=== PATIENT | female | born 1950 | race Caucasian/White ===

== ENCOUNTER 2017-04-18 07:23 | Day surgery (SDC) | payer OTHER, BC ==
[~2017-04-18] VITALS: Ht 157.5 cm; Wt 67.0 kg
[~2017-04-18 07:23] MED LIST: ARAVA10 MG PO; ASPIR-LOW81 MG PO; ASPIRIN325 MG PO; ASPIRIN81 M2 PO; BREO ELLIPTA I1 EACH IH; COZAAR100 MG PO; CYANOCOBAL1000 MCG/2 IM; CYMBALTA60 MG PO; FOLIC ACID1 MG PO; GLIPIZIDE-METF1 EAC2 PO; INVOKANA100 MG PO; METHOTREXATE2.5 MG PO; METOPROLOL SUCC50 MG PO; NEXIUM40 MG PO; PERCOCET 5/31 TABLET PO; PLAVIX75 MG PO; PREDNISONE10 M1 PO; PREDNISONE10 MG PO; PROTONIX40 MG PO; RAYOS2 MG PO; RAYOS5 MG PO; TRICOR145 MG PO; VALIUM5 MG PO; VESICARE5 MG PO; VICTOZA0.6 MG/0.1 SC; ZOCOR10 MG PO; ZOCOR80 MG PO
== END 2017-04-18 09:42 | disposition home or self-care (01) ==
LOC: CATH 07:23
PROVIDERS: Surgery
PROC: 0JH63WZ Insertion of Totally Implantable Vascular Access Device into Chest Subcutaneous Tissue and Fascia, Percutaneous Approach (ICD-10-PCS; principal; 2017-04-18)
PROC: 05HM33Z Insertion of Infusion Device into Right Internal Jugular Vein, Percutaneous Approach (ICD-10-PCS; principal; 2017-04-18)
PROC: B5131ZA Fluoroscopy of Right Jugular Veins using Low Osmolar Contrast, Guidance (ICD-10-PCS; principal; 2017-04-18)
DX: Z45.2 Encounter for adjustment and management of vascular access device (principal); I87.8 Other specified disorders of veins; D84.9 Immunodeficiency, unspecified; E11.9 Type 2 diabetes mellitus without complications; E78.00 Pure hypercholesterolemia, unspecified; Z86.73 Personal history of transient ischemic attack (TIA), and cerebral infarction without residual deficits; Z79.02 Long term (current) use of antithrombotics/antiplatelets; Z79.84 Long term (current) use of oral hypoglycemic drugs; Z87.891 Personal history of nicotine dependence
CPT/HCPCS: 82948; C1751; C1894; J0690; J1644; J2250; J3010; S0020

== ENCOUNTER 2017-07-31 08:01 | Inpatient (IN) | payer OTHER, BC ==
[~2017-07-31] VITALS: Ht 156.2 cm; Wt 65.2 kg
[2017-07-31] VITALS (8 sets, daily range): BP systolic 138–170; BP diastolic 61–82
[~2017-07-31 08:01] MED LIST changes: -ARAVA10 MG PO; +ARAVA20 MG PO; -PREDNISONE10 MG PO; +PREDNISONE5 MG PO; +VESICARE10 MG PO; -VESICARE5 MG PO
[2017-07-31 08:44] LABS: HEMATOCRIT 26.2 % (36.0-46.0); HEMOGLOBIN 8.1 G/DL (11.9-15.5); MCH 30.2 PG (29.0-34.0); MCHC 30.9 G/DL (30.0-36.0); MCV 97.8 FL (83-99); NRBC (%) 0.6 /100 WBC (0-0); PLATELET COUNT 242 K/uL (156-360); RBC DIS.WIDTH-SD 81.2 % (39-53); RED BLOOD COUNT 2.68 M/uL (3.80-5.20); WHITE BLOOD COUNT 6.3 K/uL (4.1-10.2)
[2017-07-31 08:51] LABS: BASOPHIL COUNT 0.1 K/uL (0-0.1); EOSINOPHIL (%) 0.8 % (0-5); EOSINOPHIL COUNT 0.1 K/uL (0-0.3); IMMATURE GRANULOCYTE (%) 2.4 % (0.0-0.7); LYMPHOCYTE (%) 10.3 % (15-42); LYMPHOCYTE COUNT 0.7 K/uL (1.0-2.8); MONOCYTE (%) 7.4 % (3-12); MONOCYTE COUNT 0.5 K/uL (0-0.8); NEUTROPHIL (%) 78.1 % (45-76); NEUTROPHIL COUNT 4.9 K/uL (1.8-6.4)
[2017-07-31 08:52] LABS: CHLORIDE 101 mEq/L (99-109); POTASSIUM 4.3 mEq/L (3.7-5.4); SODIUM 135 mEq/L (136-147)
[2017-07-31 08:54] LABS: GLUCOSE 293 mg/dL (70-99)
[2017-07-31 08:58] LABS: CREATININE 0.8 mg/dL (0.6-1.3); GFR ESTIMATE (CALCULATED) > 59 mL/min/
[2017-07-31 08:59] LABS: UREA NITROGEN (BUN) 17 mg/dL (9-23)
[2017-07-31] MEDS ORDERED: BACLOFEN10 MG PO (10:08)
[2017-07-31] MEDS ORDERED: PROAIR HFA8.5 GM IH (10:10)
[2017-07-31] MEDS ORDERED: PREDNISONE1 MG PO (10:10)
[2017-07-31] MEDS ORDERED: [UNRECOGNIZED DRUG - OTHER] IV (10:12)
[2017-07-31 16:03] LABS: HEMATOCRIT 26.4 % (36.0-46.0); HEMOGLOBIN 8.2 G/DL (11.9-15.5); MCV 98.9 FL (83-99)
[2017-08-01 00:31] LABS: HEMATOCRIT 31.2 % (36.0-46.0); HEMOGLOBIN 9.9 G/DL (11.9-15.5); MCV 93.4 FL (83-99)
[2017-08-01 04:25] VITALS: BP 166/74
[2017-08-01 06:44] LABS: HEMATOCRIT 31.7 % (36.0-46.0); HEMOGLOBIN 9.6 G/DL (11.9-15.5); MCV 94.3 FL (83-99)
[2017-08-01 08:06] VITALS: BP 170/70
[2017-08-01 12:44] VITALS: BP 156/67
[2017-08-01 20:23] VITALS: BP 131/61
[2017-08-01 23:48] VITALS: BP 133/64
[2017-08-02 07:10] LABS: BASOPHIL (%) 1.2 % (0-1); BASOPHIL COUNT 0.1 K/uL (0-0.1); EOSINOPHIL (%) 1.7 % (0-5); EOSINOPHIL COUNT 0.1 K/uL (0-0.3); HEMATOCRIT 30.1 % (36.0-46.0); HEMOGLOBIN 9.1 G/DL (11.9-15.5); IMMATURE GRANULOCYTE (%) 1.9 % (0.0-0.7); LYMPHOCYTE (%) 16.3 % (15-42); LYMPHOCYTE COUNT 0.7 K/uL (1.0-2.8); MCH 29.1 PG (29.0-34.0); MCHC 30.2 G/DL (30.0-36.0); MCV 96.2 FL (83-99); MONOCYTE (%) 16.8 % (3-12); MONOCYTE COUNT 0.7 K/uL (0-0.8); NEUTROPHIL (%) 62.1 % (45-76); NEUTROPHIL COUNT 2.6 K/uL (1.8-6.4); PLATELET COUNT 271 K/uL (156-360); RBC DIS.WIDTH-CV 25.8 % (11.8-14.6); RBC DIS.WIDTH-SD 86.4 % (39-53); RED BLOOD COUNT 3.13 M/uL (3.80-5.20); WHITE BLOOD COUNT 4.2 K/uL (4.1-10.2)
[2017-08-02 07:33] LABS: ALBUMIN 3.7 G/DL (3.2-4.8); ALKALINE PHOSPHATASE 47 IU/L (3-129); ALT (GPT) 15 IU/L (3-49); AST (GOT) 25 IU/L (2-34); CHLORIDE 104 MEQ/L (99-109); CREATININE 0.7 MG/DL (0.6-1.3); GFR ESTIMATE (CALCULATED) > 59 mL/min/; GLUCOSE 234 mg/dL (70-99); POTASSIUM 3.8 MEQ/L (3.7-5.4); SODIUM 139 MEQ/L (136-147); TOTAL BILIRUBIN 0.4 MG/DL (0.0-1.0); TOTAL PROTEIN 5.3 G/DL (6.4-8.3); UREA NITROGEN (BUN) 16 mg/dL (9-23)
[2017-08-02 07:43] VITALS: BP 160/72
[2017-08-02 15:42] VITALS: BP 141/68
[2017-08-02 23:10] VITALS: BP 152/70
[2017-08-03 06:33] LABS: BASOPHIL COUNT 0.1 K/uL (0-0.1); EOSINOPHIL (%) 2.9 % (0-5); EOSINOPHIL COUNT 0.1 K/uL (0-0.3); HEMATOCRIT 30.9 % (36.0-46.0); HEMOGLOBIN 9.5 G/DL (11.9-15.5); IMMATURE GRANULOCYTE (%) 2.9 % (0.0-0.7); LYMPHOCYTE (%) 25.2 % (15-42); MCH 29.7 PG (29.0-34.0); MCHC 30.7 G/DL (30.0-36.0); MCV 96.6 FL (83-99); MONOCYTE (%) 17.4 % (3-12); MONOCYTE COUNT 0.7 K/uL (0-0.8); NEUTROPHIL (%) 49.6 % (45-76); PLATELET COUNT 272 K/uL (156-360); RBC DIS.WIDTH-CV 24.8 % (11.8-14.6); RBC DIS.WIDTH-SD 83.7 % (39-53); WHITE BLOOD COUNT 4.1 K/uL (4.1-10.2)
[2017-08-03 06:56] LABS: ALBUMIN 3.8 G/DL (3.2-4.8); ALKALINE PHOSPHATASE 47 IU/L (3-129); ALT (GPT) 15 IU/L (3-49); AST (GOT) 22 IU/L (2-34); CHLORIDE 108 MEQ/L (99-109); CREATININE 0.7 MG/DL (0.6-1.3); GFR ESTIMATE (CALCULATED) > 59 mL/min/; GLUCOSE 152 mg/dL (70-99); SODIUM 140 MEQ/L (136-147); TOTAL BILIRUBIN 0.4 MG/DL (0.0-1.0); TOTAL PROTEIN 5.6 G/DL (6.4-8.3); UREA NITROGEN (BUN) 14 mg/dL (9-23)
[2017-08-03 08:07] VITALS: BP 139/65
[2017-08-03] MEDS ORDERED: TOPROL XL25 MG PO (10:31)
== END 2017-08-03 12:50 | disposition home or self-care (01) | DRG 378 ==
LOC: EME 08:01 → EDOF 09:14 → 2EAST 09:14 → ENRESERV 09:16 → 2EAST 10:20 → ENPENDDIS 08-03 12:18 → 2EAST 08-03 12:50
PROVIDERS: Emergency Medicine; Family Medicine; Hospitalist; Nurse Practitioner Family
DX: K92.2 Gastrointestinal hemorrhage, unspecified (principal); D50.9 Iron deficiency anemia, unspecified; K64.8 Other hemorrhoids; D80.3 Selective deficiency of immunoglobulin G [IgG] subclasses; T45.1X5A Adverse effect of antineoplastic and immunosuppressive drugs, initial encounter; I10 Essential (primary) hypertension; E11.9 Type 2 diabetes mellitus without complications; E78.5 Hyperlipidemia, unspecified; M06.9 Rheumatoid arthritis, unspecified; M19.90 Unspecified osteoarthritis, unspecified site; R20.0 Anesthesia of skin; R20.2 Paresthesia of skin; R00.0 Tachycardia, unspecified; R06.02 Shortness of breath; Z87.891 Personal history of nicotine dependence; Z86.73 Personal history of transient ischemic attack (TIA), and cerebral infarction without residual deficits; Z90.710 Acquired absence of both cervix and uterus
CPT/HCPCS: 36591; 78278; 80048; 80053; 82272; 82948; 85014; 85018; 85025; 85025 91; 85610; 86850; 86870; 86900; 86901; 86905; 86920; 88305; 99202; 99281; 99284; A9560; J1644; J1815; J2250; J7512; P9016

== ENCOUNTER 2017-12-01 15:12 | Inpatient (IN) | payer OTHER, BC ==
[~2017-12-01] VITALS: Ht 154.9 cm; Wt 63.7 kg
[~2017-12-01 15:12] MED LIST changes: +ADULT ASPIRIN R81 MG PO; +BACLOFEN10 MG PO; +LYRICA75 MG PO; +PREDNISONE1 MG PO; +PROAIR HFA8.5 GM IH; +TOPROL XL25 MG PO; +[UNRECOGNIZED DRUG - OTHER] IV
[2017-12-01 17:10] LABS: BASOPHIL (%) 0.6 % (0-1); BASOPHIL COUNT 0.1 K/uL (0-0.1); EOSINOPHIL (%) 0 % (0-5); HEMATOCRIT 26.7 % (36.0-46.0); HEMOGLOBIN 8.4 G/DL (11.9-15.5); IMMATURE GRANULOCYTE (%) 0.8 % (0.0-0.7); LYMPHOCYTE (%) 2.5 % (15-42); LYMPHOCYTE COUNT 0.3 K/uL (1.0-2.8); MCH 26.3 PG (29.0-34.0); MCHC 31.5 G/DL (30.0-36.0); MCV 83.7 FL (83-99); MONOCYTE (%) 8.9 % (3-12); NEUTROPHIL (%) 87.2 % (45-76); NEUTROPHIL COUNT 9.3 K/uL (1.8-6.4); PLATELET COUNT 225 K/uL (156-360); RBC DIS.WIDTH-CV 15.2 % (11.8-14.6); RBC DIS.WIDTH-SD 46.2 % (39-53); RED BLOOD COUNT 3.19 M/uL (3.80-5.20); WHITE BLOOD COUNT 10.6 K/uL (4.1-10.2)
[2017-12-01 17:18] LABS: ALBUMIN 3.7 g/dL (3.2-4.8); CHLORIDE 94 mEq/L (99-109); POTASSIUM 3.4 mEq/L (3.7-5.4); SODIUM 130 mEq/L (136-147)
[2017-12-01 17:21] LABS: GLUCOSE 116 mg/dL (70-99); TOTAL PROTEIN 6.9 g/dL (6.4-8.3)
[2017-12-01 17:22] LABS: TOTAL BILIRUBIN 0.6 mg/dL (0.0-1.0)
[2017-12-01 17:24] LABS: ALKALINE PHOSPHATASE 79 IU/L (3-129); CREATININE 1.1 mg/dL (0.6-1.3); GFR ESTIMATE (CALCULATED) 52 mL/min/
[2017-12-01 17:25] LABS: UREA NITROGEN (BUN) 20 mg/dL (9-23)
[2017-12-01 17:26] LABS: AST (GOT) 24 IU/L (2-34)
[2017-12-01 17:27] LABS: ALT (GPT) 16 IU/L (3-49)
[2017-12-01 17:28] LABS: LIPASE 16 U/L (1.0-51.0)
[2017-12-01] MEDS ORDERED: KAPSPARGO SPRIN50 MG PO (18:43)
[2017-12-01 18:51] LABS: APPEARANCE CLEAR ((CLEAR)); BILIRUBIN NEGATIVE; BLOOD MODERATE; COLOR YELLOW ((YELLOW)); GLUCOSE (STRIP) >=500; KETONES 20; LEUKOCYTES TRACE; NITRITE NEGATIVE; PROTEIN (STRIP) 100; UROBILINOGEN 0.2 MG/DL (0.2-1.0)
[2017-12-01 18:53] LABS: BACTERIA NONE SEEN /HPF; EPITHELIAL CELLS RARE /HPF; MUCUS NONE SEEN /LPF; UCUL ADDED? YES; WHITE BLOOD CELLS 20-30 /HPF (0-5)
[2017-12-01 22:30] VITALS: BP 157/63
[2017-12-02] VITALS (8 sets, daily range): BP systolic 137–173; BP diastolic 58–82
[2017-12-02 00:56] LABS: HEMATOCRIT 23.1 % (36.0-46.0); HEMOGLOBIN 7.2 G/DL (11.9-15.5); MCV 83.4 FL (83-99)
[2017-12-02 06:15] LABS: BASOPHIL (%) 0.4 % (0-1); EOSINOPHIL (%) 0.5 % (0-5); HEMATOCRIT 24.1 % (36.0-46.0); HEMOGLOBIN 7.4 G/DL (11.9-15.5); IMMATURE GRANULOCYTE (%) 0.5 % (0.0-0.7); LYMPHOCYTE (%) 2.6 % (15-42); LYMPHOCYTE COUNT 0.2 K/uL (1.0-2.8); MCH 25.7 PG (29.0-34.0); MCHC 30.7 G/DL (30.0-36.0); MCV 83.7 FL (83-99); MONOCYTE (%) 8.9 % (3-12); MONOCYTE COUNT 0.7 K/uL (0-0.8); NEUTROPHIL (%) 87.1 % (45-76); NEUTROPHIL COUNT 7.1 K/uL (1.8-6.4); PLATELET COUNT 220 K/uL (156-360); RBC DIS.WIDTH-CV 15.3 % (11.8-14.6); RBC DIS.WIDTH-SD 47.3 % (39-53); RED BLOOD COUNT 2.88 M/uL (3.80-5.20); WHITE BLOOD COUNT 8.2 K/uL (4.1-10.2)
[2017-12-02 06:27] LABS: CHLORIDE 100 MEQ/L (99-109); GFR ESTIMATE (CALCULATED) 58 mL/min/; GLUCOSE 168 mg/dL (70-99); POTASSIUM 2.9 MEQ/L (3.7-5.4); SODIUM 135 MEQ/L (136-147); UREA NITROGEN (BUN) 20 mg/dL (9-23)
[2017-12-02 19:52] LABS: HEMATOCRIT 21.9 % (36.0-46.0); HEMOGLOBIN 6.7 G/DL (11.9-15.5); MCV 83.9 FL (83-99)
[2017-12-03] VITALS (7 sets, daily range): BP systolic 126–165; BP diastolic 63–90
[2017-12-03 03:46] LABS: HEMATOCRIT 28.6 % (36.0-46.0); HEMOGLOBIN 8.9 G/DL (11.9-15.5); MCH 25.9 PG (29.0-34.0); MCHC 31.1 G/DL (30.0-36.0); MCV 83.1 FL (83-99); PLATELET COUNT 162 K/uL (156-360); RBC DIS.WIDTH-CV 15.6 % (11.8-14.6); RBC DIS.WIDTH-SD 47.4 % (39-53); RED BLOOD COUNT 3.44 M/uL (3.80-5.20); WHITE BLOOD COUNT 6.7 K/uL (4.1-10.2)
[2017-12-03 04:18] LABS: STOOL OCCULT BLD 1ST SPECIMEN NEGATIVE
[2017-12-03 04:39] LABS: C DIFF TOXIN NEGATIVE (NEGATIVE)
[2017-12-03 07:18] LABS: HEMATOCRIT 25.3 % (36.0-46.0); MCV 82.7 FL (83-99)
[2017-12-03 07:53] LABS: CHLORIDE 102 MEQ/L (99-109); CREATININE 0.8 MG/DL (0.6-1.3); GFR ESTIMATE (CALCULATED) > 59 mL/min/; GLUCOSE 135 mg/dL (70-99); SODIUM 133 MEQ/L (136-147); UREA NITROGEN (BUN) 13 mg/dL (9-23)
[2017-12-03 07:57] LABS: POTASSIUM 3.7 MEQ/L (3.7-5.4)
[2017-12-03 21:26] LABS: HEMATOCRIT 25.2 % (36.0-46.0); HEMOGLOBIN 7.9 G/DL (11.9-15.5); MCV 81.6 FL (83-99)
[2017-12-04 07:22] VITALS: BP 185/86
[2017-12-04 09:33] LABS: BASOPHIL (%) 0.5 % (0-1); EOSINOPHIL (%) 1.6 % (0-5); EOSINOPHIL COUNT 0.1 K/uL (0-0.3); HEMATOCRIT 24.6 % (36.0-46.0); HEMOGLOBIN 7.8 G/DL (11.9-15.5); IMMATURE GRANULOCYTE (%) 0.9 % (0.0-0.7); LYMPHOCYTE COUNT 0.3 K/uL (1.0-2.8); MCH 25.7 PG (29.0-34.0); MCHC 31.7 G/DL (30.0-36.0); MCV 81.2 FL (83-99); MONOCYTE (%) 12.9 % (3-12); MONOCYTE COUNT 0.7 K/uL (0-0.8); NEUTROPHIL (%) 78.1 % (45-76); NEUTROPHIL COUNT 4.4 K/uL (1.8-6.4); PLATELET COUNT 194 K/uL (156-360); RBC DIS.WIDTH-CV 16.1 % (11.8-14.6); RBC DIS.WIDTH-SD 48.1 % (39-53); RED BLOOD COUNT 3.03 M/uL (3.80-5.20); WHITE BLOOD COUNT 5.6 K/uL (4.1-10.2)
[2017-12-04 10:15] LABS: CHLORIDE 101 MEQ/L (99-109); CREATININE 0.7 MG/DL (0.6-1.3); GFR ESTIMATE (CALCULATED) > 59 mL/min/; SODIUM 134 MEQ/L (136-147); UREA NITROGEN (BUN) 11 mg/dL (9-23)
[2017-12-04 10:23] LABS: GLUCOSE 235 mg/dL (70-99)
[2017-12-04 16:08] VITALS: BP 167/80
[2017-12-04 19:47] LABS: HEMATOCRIT 25.7 % (36.0-46.0); HEMOGLOBIN 8.1 G/DL (11.9-15.5); MCV 81.6 FL (83-99)
[2017-12-04 23:40] VITALS: BP 136/62
[2017-12-05 07:40] VITALS: BP 181/87
[2017-12-05 08:23] LABS: HEMATOCRIT 27.3 % (36.0-46.0); HEMOGLOBIN 8.7 G/DL (11.9-15.5); MCH 25.7 PG (29.0-34.0); MCHC 31.9 G/DL (30.0-36.0); MCV 80.8 FL (83-99); RBC DIS.WIDTH-CV 16.2 % (11.8-14.6); RED BLOOD COUNT 3.38 M/uL (3.80-5.20); WHITE BLOOD COUNT 5.4 K/uL (4.1-10.2)
[2017-12-05 08:31] LABS: PLATELET COUNT 260 K/uL (156-360)
[2017-12-05 09:07] LABS: BASOPHIL (%) 0.9 % (0-1); BASOPHIL COUNT 0.1 K/uL (0-0.1); EOSINOPHIL (%) 2.4 % (0-5); EOSINOPHIL COUNT 0.1 K/uL (0-0.3); LYMPHOCYTE (%) 11.2 % (15-42); LYMPHOCYTE COUNT 0.6 K/uL (1.0-2.8); MONOCYTE (%) 11.9 % (3-12); MONOCYTE COUNT 0.6 K/uL (0-0.8); NEUTROPHIL (%) 71.6 % (45-76); NEUTROPHIL COUNT 3.8 K/uL (1.8-6.4)
[2017-12-05 09:15] LABS: CHLORIDE 103 MEQ/L (99-109); CREATININE 0.7 MG/DL (0.6-1.3); GFR ESTIMATE (CALCULATED) > 59 mL/min/; GLUCOSE 188 mg/dL (70-99); POTASSIUM 3.3 MEQ/L (3.7-5.4); SODIUM 138 MEQ/L (136-147); UREA NITROGEN (BUN) 8 mg/dL (9-23)
[2017-12-05] MEDS ORDERED: CEFDINIR300 MG PO (12:11)
== END 2017-12-05 14:34 | disposition home or self-care (01) | DRG 690 ==
LOC: EME 15:12 → EDOF 20:49 → CANRESERV 20:51 → 5EAST 22:16
PROVIDERS: Emergency Medicine; Hospitalist; Internal Medicine; Physician Assistant; Student in an Organized Health Care Education/Training Program
DX: N10 Acute pyelonephritis (principal); R78.81 Bacteremia; D83.9 Common variable immunodeficiency, unspecified; M06.9 Rheumatoid arthritis, unspecified; B96.20 Unspecified Escherichia coli [E. coli] as the cause of diseases classified elsewhere; D50.9 Iron deficiency anemia, unspecified; E11.9 Type 2 diabetes mellitus without complications; E78.5 Hyperlipidemia, unspecified; I10 Essential (primary) hypertension; K64.8 Other hemorrhoids; Z86.73 Personal history of transient ischemic attack (TIA), and cerebral infarction without residual deficits; Z87.891 Personal history of nicotine dependence
CPT/HCPCS: 71045; 74177; 80048; 80053; 81003; 82272; 82948; 83605; 83690; 85014; 85018; 85025; 85027; 86850; 86870; 86900; 86901; 86905; 86920; 87040; 87077; 87086; 87177; 87186; 87329; 87493; 87506; 87801; 93005; 94640; 94799; 99281; 99285; J0696; J1750; J1815; J2270; J2405; J2765; J3480; J7030; J7050; J7512; P9016